=== PATIENT | female | born 1950 | race Caucasian/White ===

== ENCOUNTER 2017-11-29 07:30 | Inpatient (IN) | payer OTHER ==
[~2017-11-29] VITALS: Ht 170.2 cm; Wt 72.6 kg
[2017-11-30 06:36] VITALS: BP 135/70
[2017-11-30 18:54] VITALS: BP 128/71
[2017-11-30 20:53] VITALS: BP 130/72
[2017-12-01 06:05] LABS: BASOPHIL % 0.2 % (0-2); PLATELET COUNT 320 x10^3mcL (130-400); RED CELL DISTRIBUTION WIDTH 13.1 % (11.5-14.5)
[2017-12-01 06:22] LABS: CALCIUM 7.9 mg/dL (8.5-10.1); CARBON DIOXIDE 27.7 mmol/L (21-32); CHLORIDE SERUM 98 mmol/L (98-107); CREATININE SERUM 0.7 mg/dL (0.6-1.0); GFR1 > 60 mL/min; GLUCOSE SERUM 122 mg/dL (74-106); POTASSIUM SERUM 3.9 mmol/L (3.5-5.1); SODIUM SERUM 132 mmol/L (136-145)
[2017-12-01 06:32] VITALS: BP 117/58
[2017-12-01 08:25] VITALS: BP 121/69
[2017-12-01 11:02] VITALS: BP 122/62
[2017-12-01 13:00] VITALS: BP 140/69
[2017-12-01 16:22] VITALS: BP 143/75
[2017-12-01 20:55] VITALS: BP 124/58
[2017-12-02 02:51] VITALS: BP 131/62
[2017-12-02 05:49] VITALS: BP 115/51
[2017-12-02 09:12] VITALS: BP 127/62
[2017-12-02 12:38] VITALS: BP 131/64
[2017-12-02 17:32] VITALS: BP 136/64
[2017-12-02 20:39] VITALS: BP 111/51
[2017-12-03 05:34] VITALS: BP 127/63
[2017-12-03 09:23] VITALS: BP 129/71; BP 147/88
[2017-12-03] MEDS ORDERED: LOV40I SQ (10:36)
[2017-12-03] MEDS ORDERED: NORCO1 TA2 PO (10:37)
[2017-12-03 12:03] VITALS: BP 129/71
[2017-12-03 12:34] VITALS: BP 148/77
== END 2017-12-03 15:01 | DRG 470 ==
LOC: MU 11-30 06:00
PROVIDERS: Neuromusculoskeletal Medicine, Sports Medicine
PROC: 0SRB0JZ Replacement of Left Hip Joint with Synthetic Substitute, Open Approach (ICD-10-PCS; principal; 2017-11-30 07:30)
DX: M16.12 Unilateral primary osteoarthritis, left hip (principal)
CPT/HCPCS: 94150; 97110-GP; 97116-GP; 97530-GP; 97535-GP; C1713; C1776; J0690; J1650; J2250; J2270; J3010; J7040; J7070; J7120; Q0092